=== PATIENT | female | born 1960 | race Caucasian/White ===

== ENCOUNTER 2017-11-07 15:13 | Emergency (ER) | payer OTHER ==
[2017-11-07 15:24] VITALS: BP 145/94
--- NOTE | 2017-11-07 15:45 | ED Physician Documentation ---
PD HPI LOWER EXT INJURY - Stated complaint Stated Complaint: R LEG INJURY - Chief complaint Chief Complaint: Ext Problem - History obtained from History obtained from: Patient, Family - History of Present Illness PD HPI LOW EXT INJURY LOCATION: Right, Calf Type of injury: Fall, Twist Where injury occurred: Street Timing - onset: How many days ago (6) Timing - duration: Days (6) Timing - details: Abrupt onset, Still present Improved by: Rest, Immobilization Worsened by: Moving, Palpating Associated symptoms: Swelling, Discolored. No: Weakness, Numbness Contributing factors: No: Anticoagulated Similar symptoms before: Has not had sx before Recently seen: Not recently seen - Additional information Additional information: 57-year-old female was on the back of a [place] when she went to get off of the bike she stepped down and pulled her gastrocs muscle. She has pain in the back of her calf with a lot of swelling and ecchymosis. She has been able to go to work but is been limping quite a bit and she is not really able to sleep at all at night because of the pain. She has been using some ibuprofen and some Tylenol she initially had some luck with that but is now no longer getting adequate relief. Pain has gone all the way up into her thigh. Review of Systems Constitutional: denies: Fever Eyes: denies: Decreased vision Ears: denies: Ear pain Nose: denies: Congestion Throat: denies: Sore throat Respiratory: denies: Cough GI: denies: Vomiting : denies: Dysuria Musculoskeletal: reports: Extremity pain, Extremity swelling, Pain with weight bearing. denies: Neck pain, Back pain Neurologic: denies: Generalized weakness, Focal weakness, Numbness PD PAST MEDICAL HISTORY - Present Medications Home Medications: Ambulatory Orders Medication Instructions Recorded Confirmed Cholecalciferol (Vitamin D3) 4 cap PO DAILY 11/07/17 11/07/17 [Vitamin D] FLUoxetine [PROzac] 1 cap PO DAILY 11/07/17 11/07/17 Gabapentin 1 cap PO DAILY 11/07/17 11/07/17 HYDROcod/ACETAM 5/325 [[place] 5/325] 1 - 2 ea PO Q6H PRN #15 tablet 11/07/17 Levothyroxine [Synthroid] 1 tab PO DAILY 11/07/17 11/07/17 Meloxicam [Mobic] 1 tab PO DAILY 11/07/17 11/07/17 - Allergies Allergies/Adverse Reactions: Allergies Allergy/AdvReac Type Severity Reaction Status Date / Time morphine AdvReac Dizziness Verified 11/07/17 15:25 PD ED PE NORMAL - Vitals Vital signs reviewed: Yes (hypertensive ) - General General: Alert and oriented X 3, No acute distress, Well developed/nourished - HEENT HEENT: Atraumatic, PERRL - Neck Neck: Supple, no meningeal sign - Respiratory Respiratory: No respiratory distress - Derm Derm: Normal color, Warm and dry, No rash - Extremities Extremities: Other (There is swelling ecchymosis and tenderness to the posterior calf on the right side. The knee joint is without injury as is the foot and toes. She appears to have pulled the gastrocs. ) - Neuro Neuro: No motor deficit, No sensory deficit Eye Opening: Spontaneous Motor: Obeys Commands Verbal: Oriented GCS Score: 15 - Psych Psych: Normal mood, Normal affect Results - Vitals Vitals: Vital Signs - 24 hr 11/07/17 15:21 Temperature 36.4 C L Heart Rate 70 Respiratory 14 Rate Blood Pressure 145/94 H O2 Saturation 99 Oxygen O2 Source Room air PD MEDICAL DECISION MAKING - ED course Complexity details: considered differential, d/w patient, d/w family ED course: 57-year-old female with a torn gastrocnemius muscle has had quite a bit of bleeding into the soft tissues and she has continued pain 1 week into the incident. She is placed into a walking boot for comfort and will provide some pain medication for night. The walking boot does not fit and this is abandoned. Departure - Departure Disposition: 01 Home, Self Care Clinical Impression: Sprain, gastrocnemius Qualifiers: Encounter type: initial encounter Laterality: right Qualified Code(s): S86.111A - Strain of other muscle(s) and tendon(s) of posterior muscle group at lower leg level, right leg, initial encounter Condition: Stable Instructions: Gastrocnemius Stretch, ED Boot Aircast Walker Follow-Up: Your, doctor [Other] Prescriptions: HYDROcod/ACETAM 5/325 [[place] 5/325] 1 - 2 ea PO Q6H PRN #15 tablet PRN Reason: Pain Discharge Date/Time: 11/07/17 16:06
== END 2017-11-07 16:06 | disposition home or self-care (01) ==
LOC: ED 15:13
DX: S86.811A Strain of other muscle(s) and tendon(s) at lower leg level, right leg, initial encounter (principal); X50.1XXA Overexertion from prolonged static or awkward postures, initial encounter; Y93.I9 Activity, other involving external motion; Y92.410 Unspecified street and highway as the place of occurrence of the external cause
CPT/HCPCS: 99283